=== PATIENT | female | born 1960 | race Caucasian/White ===

== ENCOUNTER 2016-11-30 11:09 | Emergency (ER) | payer MEDICAID, OTHER ==
[2016-11-30 11:41] LABS: #Basophils 0.2 thou/uL (0.0-0.2); #Eosinphils 0.3 thou/uL (0.0-0.7); #Lymphocytes 2.5 thou/uL (1.20-3.40); #Monocytes 0.8 thou/uL (0.11-0.59); #Neutrophils 5.6 thou/uL (1.40-6.50); %Basophils 2.1 % (0.0-1.0); %Eosinophils 3.6 % (0.0-10.0); %Lymphocytes 26.6 % (21.0-51.0); %Monocytes 8.5 % (0.0-10.0); %Neutrophils 59.2 % (42.0-75.0); Mean Corpuscular HGB CONC 33.2 g/dL (32.0-36.0); Mean Corpuscular Hemoglobin 32.2 pg (27.0-31.0); Mean Corpuscular Volume 96.9 fl (81.0-99.0); Mean Platelet Volume 7.3 fL (7.4-10.4); Platelet Count 239 thou/uL (130-400); RBC Distribution Width 12.1 % (11.5-14.5); Red Blood Cell (RBC) Count 4.36 mill/uL (4.20-5.40); White Blood Cell (WBC) Count 9.5 thou/uL (4.8-10.8)
[2016-11-30 11:47] LABS: ALT (SGPT) 32 U/L (0-55); AST (SGOT) 68 U/L (5-34); Acetaminophen Less than 3.0 mcg/mL (10.0-30.0); Alcohol 260 mg/dL (Less than 10); Alkaline Phosphatase 70 U/L (40-150); Anion Gap 18 mmol/L (10-20); BUN (Urea Nitrogen) 7 mg/dL (9.8-20.1); Bilirubin, Total 0.5 mg/dL (0.2-1.2); Calc. Creatinine Clearance 0 mL/min (70-130); Carbon Dioxide 17 mmol/L (22-29); Chloride 95 mmol/L (98-107); Estimated GFR-MDRD 72; Glucose 119 mg/dL (70-105); Salicylate Less than 5.0 mg/dL (15.0-30.0); Sodium 126 mmol/L (136-145)
--- NOTE | 2016-11-30 20:03 | CT ---
CT OF THE BRAIN WITHOUT CONTRAST 11/30/16 A soft tissue hematoma is seen over the right frontal scalp region. The underlying bone appears inta ct as does the remainder of the calvarium. No intracranial bleeding or extra-axial hematoma was seen . The ventricular sizes are normal for age and atrophy. There is perhaps a little more atrophy than I would expect for age. There is no sign of acute stroke, edema or mass. Mucosal thickening is promi nent in the ethmoid and maxillary sinuses. IMPRESSION: 1. No acute intracranial findings. 2. Mucosal thickening of the sinuses. POS: HOME
== END 2016-11-30 12:40 | disposition home or self-care (01) ==
LOC: BURERS 11:09
DX: S01.81XA Laceration without foreign body of other part of head, initial encounter (principal); S01.01XA Laceration without foreign body of scalp, initial encounter; F10.129 Alcohol abuse with intoxication, unspecified; E03.9 Hypothyroidism, unspecified; I10 Essential (primary) hypertension; J44.9 Chronic obstructive pulmonary disease, unspecified; W18.30XA Fall on same level, unspecified, initial encounter
CPT/HCPCS: 12011; 70450; 80053; 80307; 85025; 93005; 96360